=== PATIENT | female | born 1995 | race African-American/Black ===

== ENCOUNTER 2019-02-02 19:29 | Emergency (ER) | payer OTHER ==
--- NOTE | 2019-02-02 19:47 | ER Document Report ---
ED General - General Stated Complaint: POSSIBLE ALLERGIC REACTION Time Seen by Provider: 02/02/19 19:37 - HPI Notes: 21-year-old female with a stated history of allergy to shellfish from "when I was a kid" presents with possible allergic reaction. Just prior to arrival the patient states she ate some crab legs because she wanted to see if she was still allergic. Shortly thereafter she began to develop numbness and tingling her hands in her mouth. No odynophagia or dysphagia. No dyspnea. Eyes are somewhat bloodshot. Moderate intensity, rapid onset, nonradiating. No other modifying factors, no other associated symptoms, no other provocative or palliative factors. - Related Data Allergies/Adverse Reactions: shellfish derived Allergy (Severe, Verified 02/02/19 19:44) Past Medical History - Social History Smoking Status: Unknown if Ever Smoked Drug Abuse: None Family History: Reviewed & Not Pertinent - Medical History Medical History: Negative Surgical Hx: Negative Review of Systems - Review of Systems Notes: Review of systems as in the history of present illness, otherwise negative x 10 systems. Physical Exam - Vital signs Vitals: Temp Resp BP Pulse Ox 98 F 24 H 180/90 H 100 02/02/19 19:38 02/02/19 19:38 02/02/19 19:38 02/02/19 19:38 - Notes Notes: General: Well developed . HEENT: Normocephalic, atraumatic. Pupils equal round reactive to light. No JVD. No conjunctival injection Chest: No trauma. Respiratory: Good air exchange, normal excursion. Cardiac: Regular rhythm. No murmurs or gallops. Abdomen: Soft, benign. Nondistended. Nontender. Back: No asymmetry or gross abnormality. Motor: Grossly normal power and tone. Neurologic: Alert, nonfocal. Cranial nerves II-12 are intact. Sensation intact. Vascular: Well perfused. Normal peripheral pulses. Skin: No petechiae or purpura. Course - Re-evaluation Re-evalutation: 02/02/19 19:39 23-year-old female presents with some somewhat atypical symptoms of possible anaphylaxis. She is protecting her airway, no sign of airway edema, stridor or impending airway obstruction. Plan to proceed with diphenhydramine, Solu- Medrol, Pepcid, IV fluids, UPT, serial exams and reevaluate. Her only medication is an oral contraceptive. 02/02/19 19:39 02/02/19 21:42 Patient is watched throughout an extended course in the ED, she has had no recurrent symptoms, a symptomatically this time. Discharged home with a prescription for prednisone, EpiPen, will continue diphenhydramine, again admonished to not eat shellfish. Close with primary care physician. - Vital Signs Vital signs: Temp Pulse Resp BP Pulse Ox 98 F 15 150/71 H 100 02/02/19 19:38 02/02/19 20:32 02/02/19 20:32 02/02/19 20:32 - EKG Interpretation by Id EKG shows normal: Sinus rhythm, Intervals, QRS Complexes, ST-T Waves When compared to previous EKG there are: Previous EKG unavailable Discharge - Discharge Clinical Impression: Allergic reaction Qualifiers: Encounter type: initial encounter Qualified Code(s): T78.40XA - Allergy, unspecified, initial encounter Condition: Stable Disposition: HOME, SELF-CARE Instructions: Acute Allergic Reaction ([facility]) Prescriptions: Epinephrine [Epipen 2-Shubham] 0.3 mg IJ ONCE PRN #2 auto.injct PRN Reason: Prednisone [Deltasone 20 mg Tablet] 2 tab PO DAILY 5 Days #10 tablet
[2019-02-02] MEDS ORDERED: PREDNISONE 20 MG TABLET PO ONE (21:43)
[2019-02-02 22:22] VITALS: BP 126/67
== END 2019-02-02 22:24 | disposition home or self-care (01) ==
LOC: ER 19:29
DX: T78.40XA Allergy, unspecified, initial encounter (principal); R20.0 Anesthesia of skin
CPT/HCPCS: J7512